=== PATIENT | male | born 1970 | race Two or more races ===

== ENCOUNTER 2019-05-31 13:08 | Outpatient (AMBR) | payer MEDICAID, SELFPAY ==
--- NOTE | 2019-02-21 09:26 | PTNOTE_ITS ---
PT OP Initial Eval Patient Information Visit Reasons: cva Medical Diagnosis: Right CVA Treatment Dx #1: Left Shoulder Weakness Treatment Dx #2: Abnormal Gait Start of Care: 02/21/19 Date of Onset: Dec 2018 Initial Assessment Subjective Pt is a 48 y/o male with left side weakness and difficulty walking secondary to right CVA (thalamic/basal ganglia hemorrhage). Pt has been doing therapy at a rehab facility ([facility]). Pt stated that he still has left side weakness but is slowly gaining strength back. Pt can transfer independently and ambulates 100 ft with FWW. Pt still has difficulty getting in/out of showes, self care, feeding, chores, prolonged walking, prolonged standing, and performing recreational activities. 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 Pt ambulate 40 ft using FWW CGA safely in therapy Assessment Pt demonstrate left side weakness and abnormal gait secondary to right CVA. Pt will benefit from physical therapy to increase strength, mobility, and work on gait. 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 Goals 1) Increase L UE MMTs grossly 3+/5 in 12 wks to be able to perform self care activities 2) Increase L LE MMTs grossly 4-/5 in 12 wks to be able to ambulate with AD out to community 3) Increase L LE AROM WFL in 12 wks to be able to get in/out of showers 4) Increase L UR AROM WFL in 12 wks to be able to perform feeding activities 5) Indep with HEP Treatment Plan 1) Manual Therapy 2) Therapeutic Activities 3) Therapeutic Exercises 4) Gait Training 5) Balance Training Frequency and Duration 3 x wk for 12 wks Certification Dates: 02/21/19 to 05/23/19 Office Procedures PT Procedures PT Date of Service: 02/21/19 OP PT Eval Mod Complex 30 minutes: Yes
--- NOTE | 2019-02-26 11:54 | PT.ODAYNRPT ---
PT Outpatient Daily Note Date of Service: February 26, 2019 OP Daily Note Visit Reasons: cva Outpatient Physical Therapy Treatment Date: 02/26/19 Subjective: Pt mention that he's working out with his dad Objective: Please see flow chart for list of ther ex performed Assessment: tolerate exercises with minimal pain; difficulty with sci fit while using both the extremities Plan: Continue with PT Length of Time (minutes) of Treatment: 45 Minutes Office Procedures PT Procedures PT Date of Service: 02/21/19 OP PT Eval Mod Complex 30 minutes: Yes PT Procedures PT Date of Service: 02/26/19 Therapeutic Exercise 45 minutes: Yes
--- NOTE | 2019-02-28 09:36 | PT.ODAYNRPT ---
PT Outpatient Daily Note Date of Service: February 28, 2019 OP Daily Note Visit Reasons: cva Outpatient Physical Therapy Treatment Date: 02/28/19 Subjective: Pt mention that he was sore after last treatment session. Pt wants to be push. Pt continues to walk at home. Objective: Please see flow chart for list of ther ex performed Assessment: fatigue at the end of PT session and L LE started to buckle. Pt cues to correct step height with step up Plan: Continue with PT Length of Time (minutes) of Treatment: 45 Minutes Office Procedures PT Procedures PT Date of Service: 02/21/19 OP PT Eval Mod Complex 30 minutes: Yes PT Procedures PT Date of Service: 02/26/19 Therapeutic Exercise 45 minutes: Yes PT Procedures PT Date of Service: 02/28/19 Therapeutic Exercise 45 minutes: Yes
--- NOTE | 2019-03-02 09:33 | PT.ODAYNRPT ---
PT Outpatient Daily Note Date of Service: March 02, 2019 OP Daily Note Visit Reasons: Pre Diabetic Outpatient Physical Therapy Treatment Date: 03/02/19 Subjective: Pt had difficulty transferring into the truck yesterday due to being fatigue and sore from previous PT session. Pt notice he is walking better with more stability. Pt goes next week for his AFO. Objective: Please see flow chart for list of ther ex performed Assessment: Pt seems slight fatigue at the beginning of PT session; had difficulty keep left LE in the LE strap during sci fit. Pt's more comfortable and stable putting weight on the L LE during ambulation in PB Plan: Continue with PT Length of Time (minutes) of Treatment: 45 Minutes Office Procedures PT Procedures PT Date of Service: 02/21/19 OP PT Eval Mod Complex 30 minutes: Yes PT Procedures PT Date of Service: 02/26/19 Therapeutic Exercise 45 minutes: Yes PT Procedures PT Date of Service: 02/28/19 Therapeutic Exercise 45 minutes: Yes PT Procedures PT Date of Service: 03/02/19 Therapeutic Exercise 45 minutes: Yes
--- NOTE | 2019-04-05 15:41 | PR.NUT1.7RPT ---
Vital Signs 04/05/19 15:42 Height 1.63 m Height Method Measured Weight 130.691 kg Weight Measurement Method Standing Scale BMI 49.4 OP Nutritional Services Height/Weight 04/05/19 15:42 Height 1.63 m Weight 130.691 kg Body Mass Index 49.4 [facility] OP NEAP Referral Referral Source: Community (Referred by Darin HERNANDEZ) Subjective: Pt presents self for nutrition counseling. Father present as pt is needing wheelchair assistance. PMH: Hemiplegia on left side (12/19/18); Newly dx T22 (02/15/19); ETOH abuse; HTN. Medications will be faxed over by [facility]. Spoke with Noemi [phone] #3. Current ht: 162.7 cm (5'3 ); wt: 288.2 lb; BMI: 51.0 which reflects extreme obesity. Obtaining ht was not accurately taken as pt not able to bring heels back to wall for appropriate measuring d/t hemiplegia. Previous PCP visit on 02/15/19 -- ht: 66 wt: 284 lb. Pt presents with +4.2 lb wt gain x 7 wks. Inquired as to why pt needed to see Registered Dietitian. Pt reports needs to learn how to eat better and lose wt. Did not provide 3 day diet recall. Obtained verbal recall x 1 day as follows: Day 1 Breakfast (10:30 am): at a restraunt - chorizo, beans, rice (no measurement); pepsi ~12 oz No AM Snack Lunch: none PM Snack: 6 pack of peanut butter crackers, water Dinner (7:00 pm): 2 6 Enchiladas with hamburger, cheese, beans, red sauce, diet A & W Labs obtained 02/01/19: WNL: RBC 4.88; H/H 14.6/43.1; BUN 20; Cr 1.18; eGFR 74; K+ 4.4; Ca++ 9.6; total protein 7.2; Albumin 4.3; AST 13; ALT 18; cholesterol 107; Trigyclerides 122; LDL 51 Elevated: Glucose 106; Na+ 146; HgbA1c 6.5% Decreased: HDL 32 Pt has limited intake of vegetables and fruits, frequents restaurants at least 8x/mo.; no portion control, high fatty sweets (bearclaw) Objective: Pt has minimal knowledge of what foods are CHO - was able to name high starchy foods (potato, rice, bread) and how they affect blood sugars (BS). Extensive education provided utilizing measuring utensils and mentioned scale to monitor portion control. Utilized plate method and various food models to devise meals throughout the day. Pt educated to consume at least 2-3 CHO foods at each meal (30-45 gm) and 1 CHO (15 gm) for snack if desired for a total of 120-165 gm of CHO (8-11 servings). Pt verbalized understanding. Discussed the importance of physical activity. Pt currently attends outpatient PT and completes exercises given on days he is not there. Recommendations: 1) Continue monitoring BP 2) Obtain HgbA1c in April 2019 to monitor 3) Practice from eating whole bearclaw; recommend cutting in 1/2 to consume and the other 1/2 for the next day Education Topic: Weight loss and Diabetes (Newly dx 02/15/19) Education comment: Provided education material: [employer] Diabetes Meal Planning Guide and Nutrition in the [employer] to help choose more appropriate restaurant foods when dining out. Goal sheet provided: 1) Portion control; 2) continue working with PT exercises on own at home Education Recipient: Patient and Care Provider (Father present during counseling session) Response to teaching: Demonstrate understanding Follow-up Visit needed: Yes (Follow up appointment scheduled June 03, 2019 @ 1:30 pm) *CWC Office Visit complete CWC Offive Visit Complete CWC Visit Complete?: Yes
[2019-04-05 15:42] VITALS: BMI 49.4
--- NOTE | 2019-05-31 13:42 | PR.NUT1.7RPT ---
Vital Signs 04/05/19 15:42 Height 1.63 m Height Method Measured Weight 130.691 kg Weight Measurement Method Standing Scale BMI 49.4 OP Nutritional Services Height/Weight 04/05/19 15:42 Height 1.63 m Weight 130.691 kg Body Mass Index 49.4
--- NOTE | 2019-05-31 14:29 | CWCCLINC_ITS ---
Vital Signs 04/05/19 15:42 05/31/19 14:31 Height 1.63 m 1.66 m Height Method Measured Weight 130.691 kg 130.294 kg Weight Measurement Method Standing Scale BMI 49.4 47.3 OP Nutritional Services Height/Weight 04/05/19 15:42 05/31/19 14:31 Height 1.63 m 1.66 m Weight 130.691 kg 130.294 kg Body Mass Index 49.4 47.3 [facility] OP NEAP Referral Referral Source: Follow-up Visit CW NEAP Follow-up Note Medications that may have nutrient interactions: Medications unchanged. Please refer to 04/05/19 Initial Assessment. Follow-Up visit notes: First follow up appointment today. Current wt: 287.4 lb; ht: 165.9 cm (5?4?). Obtaining ht was not accurately taken as pt not able to bring heels back to wall for appropriate measuring d/t hemiplegia. Previous [facility] appointment 04/05/19 ? ht: 162.2 cm (5?3?); wt: 288.2 lb. Pt presents with -0.8 lb wt loss x 8 wks. Pt reports continues exercising in pool for an hour at least 5x/wk. Physical Therapy to resume back June 07, 2019. Pt had completed sessions on May 18, 2019. Discussed importance of portion control especially when going to restaurant for breakfast, as pt continues this practice. Pt did mention that he has eliminated bearclaws from diet. Positive encouragement provided to continue this goal. Discussed changing regular soda to diet and to consume clear colored beverages. [place] (diet) was brought up. Nutrition guan is has 0.2 gm CHO, which is acceptable, but discussed this beverage should not be consumed on a daily basis. Water is the first choice. Pt reports will have a 12 oz soda with breakfast only. Education Follow-up comment: Pt re-evaluated previous goals and wants to continue to felice them so he feels they can be accomplished with no barriers. Next appointment is set up for July 24, 2019 @ 1:00 pm *CWC Office Visit complete CWC Offive Visit Complete CWC Visit Complete?: Yes
[2019-05-31 14:31] VITALS: BMI 47.3
== END 2019-05-31 23:59 | disposition home or self-care (01) ==
PROVIDERS: Referring Provider Physical Medicine & Rehabilitation; Visit Provider Family Medicine
DX: I69.354 Hemiplegia and hemiparesis following cerebral infarction affecting left non-dominant side (principal)
CPT/HCPCS: 97110; 97162

== ENCOUNTER 2021-03-03 08:28 | Outpatient (AMBR) | payer MEDICAID, SELFPAY ==
--- NOTE | 2021-02-24 16:10 | PTNOTE_ITS ---
PT OP Initial Eval Patient Information Visit Reasons: cva Medical Diagnosis: I63.9 Treatment Dx #1: CVA with L sided weakness Start of Care: 02/24/21 Initial Assessment Subjective Pt is 50 yr old male s/p CVA, thalamic/basal ganglia hemorrhage in December 2018. He has done therapy here with improvements in walking now with the cane. He is able to dress, groom, bathe, toilet independently and he can walk down the street about 80-90 yards with the cane and then sits to rest about 4-5x a day. PMH: HTN, pre-DM Pt goal: to walk better and move L arm better. 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 Pt has L UE ROM deficits and ambulates with hemiplegic gait with quad cane that he doesn't rely heavily on and L LE passes R LE in swing phase. Pt requires skilled therapy in order to improve L LE function with gait and has fair rehab potential. Short Term and Frame Table Operator Goals 1. Independent with HEP 2. Pt will ambulate at least 130 yards continuous with quad cane 3. Improved Tinetti score to Treatment Plan 90 day POC in order to complete visits. Rx may consist of Therex, Manual therapy, Neuromuscular re-education, Modalities as indicated-moist heat packs, ice packs, estim Frequency and Duration 2x a week for 6 weeks Certification Dates: 02/24/21 to 05/26/21 Office Procedures PT Procedures PT Date of Service: 02/24/21 OP PT Eval Mod Complex 30 minutes: Yes
--- NOTE | 2021-02-26 16:27 | PTNOTE_ITS ---
PT Outpatient Daily Note Date of Service: 02/26/21 OP Daily Note Visit Reasons: cva Outpatient Physical Therapy Treatment Date: 02/26/21 Subjective: Same as time of evaluation Objective: See F/S for therex MT: alternating isometrics pt in quadruped. rotary, superior, inferior x5' Assessment: Pt has difficulty in quadruped with WB on L UE since elbow doesn't fully extend. 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 Pt was able to do the total gym today well. Plan: Continue per POC Length of Time (minutes) of Treatment: 30 Minutes Office Procedures PT Procedures PT Date of Service: 02/26/21 Therapeutic Exercise 30 minutes: Yes PT Procedures PT Date of Service: 02/24/21 OP PT Eval Mod Complex 30 minutes: Yes
--- NOTE | 2021-03-03 10:44 | PT.ODAYNRPT ---
PT Outpatient Daily Note Date of Service: 03/03/21 OP Daily Note Visit Reasons: cva Outpatient Physical Therapy Treatment Date: 03/03/21 Subjective: Pt wants to do exercises to help control the L hand more. Fine motor control is difficult. Objective: SEe f/S for therex Assessment: Pt has difficulty with grasping and manipulating objects as his L digits PIP and DIP joints are in extension pattern and shoulder movements are jerky. Plan: Continue per POC Length of Time (minutes) of Treatment: 30 Minutes Office Procedures PT Procedures PT Date of Service: 02/26/21 Therapeutic Exercise 30 minutes: Yes PT Procedures PT Date of Service: 03/03/21 Therapeutic Exercise 30 minutes: Yes PT Procedures PT Date of Service: 02/24/21 OP PT Eval Mod Complex 30 minutes: Yes
== END 2021-03-06 23:59 | disposition home or self-care (01) ==
PROVIDERS: PCP Physician Assistant; Referring Provider Physician Assistant; Visit Provider Physician Assistant
DX: I69.354 Hemiplegia and hemiparesis following cerebral infarction affecting left non-dominant side (principal); I10 Essential (primary) hypertension; R73.03 Prediabetes
CPT/HCPCS: 97110; 97162

== ENCOUNTER 2021-07-02 09:25 | Outpatient (AMBR) | payer MEDICAID, SELFPAY ==
--- NOTE | 2021-06-11 10:01 | PT.OIERPT ---
PT OP Initial Eval Patient Information Visit Reasons: cva Medical Diagnosis: I63.9 Treatment Dx #1: CVA with L sided weakness Start of Care: 06/11/21 Date of Onset: December 2018 Initial Assessment Subjective Pt is 50 yr old male s/p CVA, thalamic/basal ganglia hemorrhage in December 2018. He has done therapy here with improvements and is walking now with the cane. He is able to dress, groom, bathe, toilet independently but needs assist to walk down the street. He can walk about 1 block with the cane. PMH: HTN, pre-DM Pt goal: to walk better and move L hand better. Objective L 22 lbs, R 50 lbs L UE AROM: FF: 100 deg Abduction: 90 deg L LE AROM: SLR: 55 deg with knee flexion Knee flexion: 100 deg Extension: full L hand: digits stuck in extension with DIP extension contractures Strength: Hip flexion: 3+/5 Knee extension: 4-/5 with jerkiness Knee flexion: 4/5 Increased tone and spasticity in synergistic pattern of L UE with flaccidity Gait: hemiplegic gait pattern with circumducted L LE and extensor hypertonia Rogers's on L: negative Babinski: positive on L Transfers supine to sit: independent Assessment Pt presentation consistent with referring Dx. Pt has L UE ROM deficits and ambulates with hemiplegic gait with SPC and L LE doesn't pass R LE in swing phase. The L digits are stuck in extension and he has difficulty controlling the hand with gripping and releasing. Pt requires skilled therapy in order to improve L hand function and gait and has fair rehab potential. Short Term and Scallop Cutter Machine Goals 1. Independent with HEP 2. Improved ethnology teacher strength on L hand to at least 26 lbs 3. Improved step length on L in order to pass R foot in swing phase Treatment Plan 1. Manual therapy 2. Therex 3. Modalities as indicated, moist heat, ice, estim Frequency and Duration 2x a week for 6 weeks Certification Dates: 06/11/21 to 09/11/21 Office Procedures PT Procedures PT Date of Service: 06/11/21 OP PT Eval Mod Complex 30 minutes: Yes
--- NOTE | 2021-06-18 15:01 | PTNOTE_ITS ---
PT Outpatient Daily Note Date of Service: 06/18/2021 OP Daily Note Visit Reasons: cva Outpatient Physical Therapy Treatment Date: 06/18/21 Subjective: pt states he has to be careful opening the water bottle or he will s queeze the water bottle and spill it unintentionally. which causes him to get frustrated. Objective: see flow sheet. Assessment: observed pt's fingers and move uncontrollably which makes it difficult for him to grab and squeeze objects. he was not able to put his fingers inside the web for flexion and extension of the digits. pt was able to use the DB for exercises in different weights depending on his strength. side steps with resistance did not cause instability but was muscle fatigue. he had no complaints post treatment. Plan: continue POC per PT. Length of Time (minutes) of Treatment: 30 Minutes Office Procedures PT Procedures PT Date of Service: 06/11/21 OP PT Eval Mod Complex 30 minutes: Yes PT Procedures PT Date of Service: 06/18/21 Therapeutic Exercise 30 minutes: Yes
--- NOTE | 2021-06-23 15:22 | PT.ODAYNRPT ---
PT Outpatient Daily Note Date of Service: 06/23/21 OP Daily Note Visit Reasons: cva Outpatient Physical Therapy Treatment Date: 06/23/21 Subjective: Pt reports difficulty with gripping and bending L digits Objective: See f/S for therex Assessment: Pt has L hand digit extensor bias and decreased motor control into flexion. Good gross LE motor control and strength. Plan: Continue per POC Length of Time (minutes) of Treatment: 30 Minutes Office Procedures PT Procedures PT Date of Service: 06/11/21 OP PT Eval Mod Complex 30 minutes: Yes PT Procedures PT Date of Service: 06/18/21 Therapeutic Exercise 30 minutes: Yes PT Procedures PT Date of Service: 06/23/21 Therapeutic Exercise 30 minutes: Yes
--- NOTE | 2021-06-25 10:27 | PTNOTE_ITS ---
PT Outpatient Daily Note Date of Service: 06/25/2021 OP Daily Note Visit Reasons: cva Outpatient Physical Therapy Treatment Date: 06/25/21 Subjective: pt came in really early today. pt states she is staying with her gretchen percy to help with new born baby. she states she still can not do much. Objective: see flow sheet. Assessment: noted swelling and redness on her biceps and forearm. pt continues to carry her arm close to her body. she is very sensitive and has pain with every movement. educated pt about heat/cold packs and advised her to use cold packs at home as well. pt was able to relax during PROM but needs to be moved very slow due to her pain. used hot pack during PROM which helped her relax. used cold pack pos ther ex. Plan: continue POC per PT. Length of Time (minutes) of Treatment: 30 Minutes Office Procedures PT Procedures PT Date of Service: 06/11/21 OP PT Eval Mod Complex 30 minutes: Yes PT Procedures PT Date of Service: 06/18/21 Therapeutic Exercise 30 minutes: Yes PT Procedures PT Date of Service: 06/23/21 Therapeutic Exercise 30 minutes: Yes PT Procedures PT Date of Service: 06/25/21 Therapeutic Exercise 30 minutes: Yes
--- NOTE | 2021-06-30 16:56 | PT.ODAYNRPT ---
PT Outpatient Daily Note Date of Service: 06/30/21 OP Daily Note Visit Reasons: cva Outpatient Physical Therapy Treatment Date: 06/30/21 Subjective: Pt reports difficulty with gripping and bending L digits Objective: See f/S for therex Assessment: Pt has L hand digit extensor bias and decreased motor control into flexion. Good gross LE motor control and strength. Plan: Continue per POC Length of Time (minutes) of Treatment: 30 Minutes Office Procedures PT Procedures PT Date of Service: 06/11/21 OP PT Eval Mod Complex 30 minutes: Yes PT Procedures PT Date of Service: 06/18/21 Therapeutic Exercise 30 minutes: Yes PT Procedures PT Date of Service: 06/23/21 Therapeutic Exercise 30 minutes: Yes PT Procedures PT Date of Service: 06/25/21 Therapeutic Exercise 30 minutes: Yes PT Procedures PT Date of Service: 06/30/21 Therapeutic Exercise 30 minutes: Yes
--- NOTE | 2021-07-02 10:14 | PT.ODAYNRPT ---
PT Outpatient Daily Note Date of Service: 07/02/2021 OP Daily Note Visit Reasons: cva Outpatient Physical Therapy Treatment Date: 07/02/21 Subjective: pt doing well today. Objective: see flow sheet. Assessment: pt able to flex his fingers during digi flex exercise but he has to do the exercsise 2x in order to switch his position. he does use the other hand to hold the digi flex in place. he can almost full supinate the arm during bicep curls but can not fully supinate the arm during sup/pron exercise alone. Plan: continue POC per PT. Length of Time (minutes) of Treatment: 30 Minutes Office Procedures PT Procedures PT Date of Service: 06/11/21 OP PT Eval Mod Complex 30 minutes: Yes PT Procedures PT Date of Service: 06/18/21 Therapeutic Exercise 30 minutes: Yes PT Procedures PT Date of Service: 06/23/21 Therapeutic Exercise 30 minutes: Yes PT Procedures PT Date of Service: 06/25/21 Therapeutic Exercise 30 minutes: Yes PT Procedures PT Date of Service: 06/30/21 Therapeutic Exercise 30 minutes: Yes PT Procedures PT Date of Service: 07/02/21 Therapeutic Exercise 30 minutes: Yes
== END 2021-07-07 23:59 | disposition home or self-care (01) ==
PROVIDERS: PCP Physician Assistant; Referring Provider Physician Assistant; Visit Provider Physician Assistant
DX: I69.354 Hemiplegia and hemiparesis following cerebral infarction affecting left non-dominant side (principal); I10 Essential (primary) hypertension; R73.03 Prediabetes
CPT/HCPCS: 97110; 97162

== ENCOUNTER 2024-10-22 21:48 | Emergency (ER) | payer OTHER, MEDICAID, SELFPAY ==
[2024-10-22 21:48] VITALS: BMI 48.4
[2024-10-22 21:57] VITALS: BP 139/88; PULSE 93; RESP 18; TEMP 36.6; O2SAT 94
--- NOTE | 2024-10-22 22:04 | EDNOTE_ITS ---
Lower Extremity Injury RME/HPI General Chief Complaint: Extremity Injury, Lower Stated Complaint: LEFT LEG PAIN Time Seen by Provider: 10/22/24 21:51 Arrival date/time: 10/22/24 21:48 53-year-old male with a history of left meniscus tear and CVA affecting the left side reports with complaints of left knee pain. Patient states that he stepped wrong twisted and felt a pop and pain in the knee. Patient states that he has not taken any medications for it but he is here requesting pain as he is unable to bear it. He denies numbness or tingling loss of range of motion or weakness in the knee. Limitations: no limitations Related Data Home Medications ?Medication ?Instructions ?Recorded ?Confirmed amlodipine 10 mg tablet 10 mg PO QDAY 08/04/19 01/24/20 atorvastatin 10 mg tablet 10 mg PO QPM 08/04/19 01/24/20 carvedilol 12.5 mg tablet 12.5 mg PO BID 08/04/19 01/24/20 clonidine HCl 0.1 mg tablet 0.1 mg PO Q8H PRN HBP 08/04/19 01/24/20 hydralazine 50 mg tablet 100 mg PO TID 08/04/19 01/24/20 lisinopril 20 mg tablet 20 mg PO BID 08/04/19 01/24/20 sertraline 50 mg tablet 50 mg PO QDAY 08/04/19 01/24/20 furosemide 20 mg tablet (Lasix) 10 mg PO QAM 01/24/20 01/24/20 potassium chloride 8 mEq 8 meq PO QAM 01/24/20 01/24/20 capsule,extended release Previous Rx's ?Medication ?Instructions ?Recorded hydrocodone 7.5 mg-acetaminophen 1 tab PO Q6H #25 tabs 01/29/20 325 mg tablet ([place]) hydrocodone 5 mg-acetaminophen 325 1 tab PO Q12H PRN pain #10 tabs 10/22/24 mg tablet Allergies Allergy/AdvReac Type Severity Reaction Status Date / Time No Known Allergies Allergy Verified 08/08/23 14:23 Review of Systems Constitutional Constitutional: Denies chills and Denies fever(s) Musculoskeletal Musculoskeletal: Reports arthralgias, Denies deformity, Denies joint swelling, Denies muscle weakness, Denies numbness and Denies tingling Integumentary/Breasts Skin/Breast: Denies unusual bruising and Denies wounds Neurologic Neurologic: Denies numbness and Denies tingling Hematologic/Lymphatic Hematologic/Lymphatic: Denies easy bleeding and Denies easy bruising Past Medical History Past Medical History NEUROLOGIC: Positive Neurological Disorders and Cerebrovascular Accident (left sided weakness); Negative Seizures CARDIAC: Positive Hypertension; Negative Cardiac Disorders or Congestive Heart Failure RESPIRATORY: Positive Sleep Apnea; Negative Chronic Obstructive Pulmonary Disease (COPD) or Asthma GENITOURINARY: Negative Renal Disease ENDOCRINE: Negative Diabetes Mellitus Type 1 or Diabetes Mellitus Type 2 (per pt. boarderline) HEMATOLOGIC: Negative Sickle Cell Disease Family History FAMILY HISTORY: Negative Family Neurologic Problems, Family Psychiatric Problems, Family Respiratory Disorders, Family Cardiac Disorders, Family Gastrointestinal Problems, Family Cancer, Family Surgery or Family Anesthesia Reaction Social History SMOKING STATUS: Never smoker SUBSTANCE USE: does not use ED Exam General Limitations: Present no limitations General appearance: Present alert and in no apparent distress Expanded Lower Extremity Exam Upper leg exam: Present normal inspection and full ROM Knee exam: Present normal inspection, full ROM, tenderness (Lateral joint line left knee) and other (pulses/reflexes 2+, sensory intact); Absent swelling, ecchymosis, effusion, laxity with valgus or laxity with varus Lower leg exam: Present normal inspection and full ROM Ankle exam: Present normal inspection and full ROM Gait: unable to bear weight Neurological Exam Neurological exam: Present alert, oriented X3 and CN II-XII intact Psychiatric Psychiatric exam: Present normal affect and normal mood Skin Skin exam: Present warm, dry, intact and normal color Course Quality Measures none Vital Signs Vital signs: Vital Signs Temperature 98 F 10/22/24 21:57 Pulse Rate 93 10/22/24 21:57 Respiratory Rate 18 10/22/24 21:57 Blood Pressure 139/88 H 10/22/24 21:57 Pulse Oximetry (%) 94 L 10/22/24 21:57 Oxygen Delivery Method Room Air 10/22/24 21:57 Extremity Injury, Lower Patient data External records reviewed:: None Clinical information provided by:: patient Social determinants that could affect healthcare access:: other (specify) Patient has the following chronic illnesses:: left menicus tear How is presenting disease/condition affected by chronic disease/condition?: caused by Evaluation data The following diagnostics were reviewed and interpreted by me:: other (specify) (none) Lab and/or radiology exams considered but not ordered:: xray Interpretation Summary: n/a Medications / Prescriptions Medications or Prescriptions considered but not ordered:: none Medication administrations:: [place] 5/325 Consultations Consultation(s) initiated? (list below): No Diagnosis Most likely diagnosis given after review of the tests above:: left knee pain Admission Indicated Admission indicated?: not indicated Admission Request Was there a request for admission?: No Disposition Plan Disposition Plan: Discharge Discharge Attestation Discharge Attestation: The patient and all family members were given an opportunity to ask questions and understood the discharge instructions. Discharge instructions specifically effects, indications for sooner follow up or return to the emergency department, and the expected course of current diagnosis. Patient condition: Stable Discharge Plan Plan Patient Disposition: HOME (Self Care) Prescriptions/Referrals Prescriptions/Med Rec: New hydrocodone-acetaminophen 5-325 mg tablet 1 tab PO Q12H MDD 4 g APAP PRN (Reason: pain) Qty: 10 0RF No Action clonidine HCl 0.1 mg Tablet 0.1 mg PO Q8H PRN (Reason: HBP) Rx Instructions: every 8 hrs prn b/p greater than 150/90 carvedilol 12.5 mg Tablet 12.5 mg PO BID atorvastatin 10 mg Tablet 10 mg PO QPM lisinopril 20 mg Tablet 20 mg PO BID amlodipine 10 mg Tablet 10 mg PO QDAY hydralazine 50 mg Tablet 100 mg PO TID sertraline 50 mg Tablet 50 mg PO QDAY potassium chloride 8 mEq capsule, extended release 8 meq PO QAM Patient Comments: TAKE ONE CAPSULE BY MOUTH EVERY DAY furosemide [Lasix] 20 mg tablet 10 mg PO QAM Rx Instructions: HALG TAB PO QAM hydrocodone-acetaminophen [[place]] 7.5-325 mg tablet 1 tab PO Q6H MDD 4 Qty: 25 0RF Referrals: Temporary Provider,ED [Primary Care Provider] - In 1 week Problem List Clinical Impression: Knee pain, left Patient/Caregiver Discharge Instructions Discharge Activity: activity as tolerated Education Materials: ED RICE Additional Instructions: Follow-up with your primary care provider Print Language: Slovenian Stand Alone Forms: Caryl Award Info., Patient Portal Info Letter
[2024-10-22] MEDS: HYDROcodone/APAP 5/325 TABLET 1 TAB PO (22:40)
== END 2024-10-22 22:47 | disposition home or self-care (01) ==
PROVIDERS: Emergency Provider Emergency Medicine; PCP Nurse Practitioner Family
DX: S89.92XA Unspecified injury of left lower leg, initial encounter (principal); X50.1XXA Overexertion from prolonged static or awkward postures, initial encounter
CPT/HCPCS: 99283; A9270

== ENCOUNTER 2024-10-23 17:22 | Emergency (ER) | payer OTHER, MEDICAID, SELFPAY ==
[2024-10-23 17:22] VITALS: BMI 47.6
[2024-10-23 17:43] VITALS: BP 135/82; PULSE 93; RESP 20; TEMP 37.4; O2SAT 95
--- NOTE | 2024-10-23 17:45 | XR_ITS ---
Examination: Knee, left , 3 views Technique: Knee AP, lateral, oblique 3 views Date and time of exam: 1 hours Indication: Patient fell with injury to the knee 2 days ago, knee pain. Findings: No acute fracture Moderate to advanced tricompartment osteoarthritis Moderate knee effusion Impression: No acute fracture
--- NOTE | 2024-10-23 17:45 | PD.EDRME ---
Rapid Medical Screening Exam RME Arrival date/time: 10/23/24 17:22 53-year-old male presents emergency department complains of left knee pain worse with movement patient reports previous injury to the knee with ligamentous injury Chief Complaint: Extremity Injury, Lower Time Seen by Provider: 10/23/24 17:35 Vital signs: Vital Signs Temperature 99.4 F 10/23/24 17:43 Pulse Rate 93 10/23/24 17:43 Respiratory Rate 20 10/23/24 17:43 Blood Pressure 135/82 H 10/23/24 17:43 Pulse Oximetry (%) 95 10/23/24 17:43 Oxygen Delivery Method Room Air 10/23/24 17:43
--- NOTE | 2024-10-23 21:04 | PD.EDLOWEX ---
Lower Extremity Injury RME/HPI General Chief Complaint: Extremity Injury, Lower Stated Complaint: LEFT KNEE PAIN WANTS MRI Time Seen by Provider: 10/23/24 17:35 Arrival date/time: 10/23/24 17:22 Limitations: no limitations RME / HPI RME / HPI Narrative: 10/23/24 17:22 53-year-old male presents emergency department complains of left knee pain worse with movement patient reports previous injury to the knee with ligamentous injury. DR. RAMIREZ MAIN ED EVALUATION: 53-year-old male presents to the Emergency Department with complaint of left knee pain since twisting his knee a few days ago. The patient states that he has history of stroke and has baseline weakness in his left upper extremity and lower extremity. He was twisting it and now is complaining of increased pain. The patient states a few years ago he was told that he might of had a ligamental injury but could not get it treated because he had a history of stroke and his blood pressure is too high. Blood pressure has been fine the last few years. Patient is increasing pain over the last few days Patient without weakness or numbness. Related Data Home Medications ?Medication ?Instructions ?Recorded ?Confirmed amlodipine 10 mg tablet 10 mg PO QDAY 08/04/19 01/24/20 atorvastatin 10 mg tablet 10 mg PO QPM 08/04/19 01/24/20 carvedilol 12.5 mg tablet 12.5 mg PO BID 08/04/19 01/24/20 clonidine HCl 0.1 mg tablet 0.1 mg PO Q8H PRN HBP 08/04/19 01/24/20 hydralazine 50 mg tablet 100 mg PO TID 08/04/19 01/24/20 lisinopril 20 mg tablet 20 mg PO BID 08/04/19 01/24/20 sertraline 50 mg tablet 50 mg PO QDAY 08/04/19 01/24/20 furosemide 20 mg tablet (Lasix) 10 mg PO QAM 01/24/20 01/24/20 potassium chloride 8 mEq 8 meq PO QAM 01/24/20 01/24/20 capsule,extended release Previous Rx's ?Medication ?Instructions ?Recorded hydrocodone 7.5 mg-acetaminophen 1 tab PO Q6H #25 tabs 01/29/20 325 mg tablet ([place]) hydrocodone 5 mg-acetaminophen 325 1 tab PO Q12H PRN pain #10 tabs 12/16/24 mg tablet Allergies Allergy/AdvReac Type Severity Reaction Status Date / Time No Known Allergies Allergy Verified 08/08/23 14:23 Review of Systems Review of Systems Systems Reviewed: All systems reviewed, normal except as documented Narrative Review of Systems: GEN: No fever, no chills, no weight loss EYES: No discharge, no visual changes, no pain HEENT: No ear pain, no congestion, no sore throat PULM: No shortness of breath, no cough, no congestion CV: No chest pain, no dyspnea on exertion, no palpitations GI: No nausea, no vomiting, no diarrhea, no pain, no constipation : No frequency, no urgency and no dysuria MUSC/SKEL: + left knee pain (see HPI), no back pain SKIN: No rash PSYCH: No hallucinations, no depression HEME/LYMPH: No easy bleeding or bruising tendencies NEURO: No headache Constitutional Comments: No fevers Musculoskeletal Comments: Left knee pain Neurologic Comments: No weakness or numbness Past Medical History Past Medical History NEUROLOGIC: Positive Neurological Disorders and Cerebrovascular Accident (left sided weakness); Negative Seizures CARDIAC: Positive Hypertension; Negative Cardiac Disorders or Congestive Heart Failure RESPIRATORY: Positive Sleep Apnea; Negative Chronic Obstructive Pulmonary Disease (COPD) or Asthma GENITOURINARY: Negative Renal Disease ENDOCRINE: Negative Diabetes Mellitus Type 1 or Diabetes Mellitus Type 2 (per pt. boarderline) HEMATOLOGIC: Negative Sickle Cell Disease Family History FAMILY HISTORY: Negative Family Neurologic Problems, Family Psychiatric Problems, Family Respiratory Disorders, Family Cardiac Disorders, Family Gastrointestinal Problems, Family Cancer, Family Surgery or Family Anesthesia Reaction Social History SMOKING STATUS: Never smoker SUBSTANCE USE: does not use ALCOHOL: Never ED Exam Narrative Physical exam: KNEE: On inspection contours of the joint are normal, there is reduced ROM. Muscle atrophy evident: no Pain on resisted extension: no Strength on extension against resistance: no Patellar crepitus: none Effusion (fluid wave check or patellar palpation): mild Patellar pain: lateal Joint line pain: none medially or laterally Tendon pain: No pain with palpation of the patellar and quad tendons Della:negative for crepitus and pain Bursal swelling or pain: No swelling or pain over the pes anserine bursa Collateral ligament testing: shows no laxity or pain/shows medial collateral ligament pain without laxity Anterior drawer test no anterior cruciate laxity ROM: is limited Posterior drawer: shows no laxity Popliteal space: without mass orP tenderness General Limitations: Present no limitations General appearance: Present alert and in no apparent distress Head Head exam: Present atraumatic ENT ENT exam: Present normal exam, normal oropharynx and mucous membranes moist Neck Neck exam: Present normal inspection, full ROM and trachea midline Respiratory Respiratory exam: Present normal lung sounds bilaterally Cardiovascular Cardiovascular exam: Present regular rate, normal rhythm and normal heart sounds Abdominal Exam Abdominal exam: Present soft and normal bowel sounds Extremities Exam Extremities exam: Present normal inspection and full ROM Back Exam Back exam: Present normal inspection and full ROM Skin Skin exam: Present warm, dry, intact and normal color Course Course Course Narrative: Knee x-ray has been ordered to aid in determining etiology of knee pain. Refer to ROS for associated respiratory symptoms. See physical exam for additional information if not listed in ROS. Quality Measures none Orders Category Date Time Status [place] wrap [Splint / Immobilizer] STAT Care 10/23/24 21:[address] knee LT wo con Stat Exams 10/23/24 21:08 Completed XR knee LT 3V Stat Exams 10/23/24 17:45 Completed Ketorolac Inj [Toradol Inj] Med 10/23/24 21:08 Discontinued 30 mg IM X1 ONE Reevaluation(s) Reevaluation #1: Patient placed in [place] bandage and is significantly improved. At this time he does not want a knee immobilizer and/or crutches which will make it difficult for him walk because of his previous stroke. Time: 23:56 Vital Signs Vital signs: Vital Signs Temperature 99.4 F 10/23/24 17:43 Pulse Rate 93 10/23/24 17:43 Respiratory Rate 20 10/23/24 17:43 Blood Pressure 135/82 H 10/23/24 17:43 Pulse Oximetry (%) 95 10/23/24 17:43 Oxygen Delivery Method Room Air 10/23/24 17:43 Extremity Injury, Lower MDM Narrative MDM Narrative:: IMarsha am scribing for and in the presence of Dr. Ramirez. Patient data External records reviewed:: [facility] previous records (Reviewed last ED visit dated 10/22/24, discharged with the following: Knee pain, left.) Clinical information provided by:: patient Social determinants that could affect healthcare access:: none Patient has the following chronic illnesses:: Hypertension, hyperlipidemia. How is presenting disease/condition affected by chronic disease/condition?: uneffected by Evaluation data The following diagnostics were reviewed and interpreted by me:: radiology exam(s) Lab and/or radiology exams considered but not ordered:: none Interpretation Summary: Procedure(s): XR knee LT 3V Accession Number(s): [id number] cc: Jhonny (BRENDA),Julio GUTIERREZ; Kendrick Buck MD; Shavonne Jose NP~ Examination: Knee, left , 3 views Technique: Knee AP, lateral, oblique 3 views Date and time of exam: 1 hours Indication: Patient fell with injury to the knee 2 days ago, knee pain. Findings: No acute fracture Moderate to advanced tricompartment osteoarthritis Moderate knee effusion Impression: No acute fracture Dictated By: Kendrick Buck MD Procedure(s): CT knee LT wo con Accession Number(s): [id number] cc: Kendrick Buck MD; Shavonne Jose NP; Karina Ramirez MD~ Examination: CT left knee, without contrast. 2-D sagittal reconstructions. 2-D coronal reconstructions. 3-D reconstructions. Date and time of exam:October 23, 2024 1007 hrs. Indications: Twisting injury to the knee 3 days ago with knee pain CTDI: vol (mGy):11.8 DLP: (mGycm):346 Technique: Multiple 1.25 mm axial sections of the intravenous contrast have been obtained. 2-D sagittal and coronal reconstructions have been obtained. 3-D reconstructions have been obtained. Low dose protocols were performed. One or more of the following dose reduction techniques were used; automated exposure control, adjustment of the mA and/or KV according to patient size, use of iterative reconstruction technique. Findings: Distal femur femoral condyles intact Widening of the medial patellofemoral joint space with moderate narrowing of the lateral patellofemoral joint, axial image 44 Tibial plateau proximal tibia region fibular head and neck intact Moderate tricompartment osteoarthritis Small knee effusion Impression: No acute fracture Abnormal widening of the medial patellofemoral joint consistent with tear of the medial patellar retinaculum Recommend MRI knee without contrast follow-up Dictated By: Kendrick Buck MD Medications / Prescriptions Medications or Prescriptions considered but not ordered:: none Medication administrations:: Medication Administration History Discontinued Medications Ketorolac Tromethamine (Ketorolac Inj 60 Mg/2 Ml Vial) 30 mg IM X1 ONE Stop: 10/23/24 21:09 Last Admin: 10/23/24 21:31 Dose: 30 mg Documented By: MP see above Consultations Consultation(s) initiated? (list below): No Consultation #1 (Physician, Specialty, Details): na Diagnosis Extremity Injury, Lower Differential Diagnosis: other (severe osteoarthritis, acute on chronic ligamental injury, fracture that is occult, doubt DVT) Most likely diagnosis given after review of the tests above:: Effusion of left knee, Osteoarthritis, Ligament tear Admission Indicated Admission indicated?: not indicated Explain why admission is indicated or not indicated:: Patient able to ambulate. Admission Request Was there a request for admission?: No Disposition Plan Disposition Plan: Discharge Discharge Attestation Discharge Attestation: The patient and all family members were given an opportunity to ask questions and understood the discharge instructions. Discharge instructions specifically effects, indications for sooner follow up or return to the emergency department, and the expected course of current diagnosis. Patient condition: Stable Discharge Plan Plan Patient Disposition: HOME (Self Care) Patient condition on transfer: Stable Prescriptions/Referrals Prescriptions/Med Rec: No Action clonidine HCl 0.1 mg Tablet 0.1 mg PO Q8H PRN (Reason: HBP) Rx Instructions: every 8 hrs prn b/p greater than 150/90 carvedilol 12.5 mg Tablet 12.5 mg PO BID atorvastatin 10 mg Tablet 10 mg PO QPM lisinopril 20 mg Tablet 20 mg PO BID amlodipine 10 mg Tablet 10 mg PO QDAY hydralazine 50 mg Tablet 100 mg PO TID sertraline 50 mg Tablet 50 mg PO QDAY potassium chloride 8 mEq capsule, extended release 8 meq PO QAM Patient Comments: TAKE ONE CAPSULE BY MOUTH EVERY DAY furosemide [Lasix] 20 mg tablet 10 mg PO QAM Rx Instructions: HALG TAB PO QAM hydrocodone-acetaminophen [[place]] 7.5-325 mg tablet 1 tab PO Q6H MDD 4 Qty: 25 0RF hydrocodone-acetaminophen 5-325 mg tablet 1 tab PO Q12H MDD 4 g APAP PRN (Reason: pain) Qty: 10 0RF Referrals: Shavonne Jose NP [Primary Care Provider] - In 1 week Marc Valentine MD [Physician] - In 1 week (You need to get a referral from your doctor for the MRI and referral to orthopedic. However your here is Dr. Valentine's office number.) Problem List Clinical Impression: Effusion of left knee, Osteoarthritis, Ligament tear Patient/Caregiver Discharge Instructions Other Activity Instructions:: Please avoid running so you could avoid doing more damage to your knee. Education Materials: [facility] ED Knee Effusion, ED Osteoarthritis Additional Instructions: 1. Your x-ray is as below:Findings: No acute fracture Moderate to advanced tricompartment osteoarthritis Moderate knee effusion Impression: No acute fracture 2. Your CT of your knee: Distal femur femoral condyles intact Widening of the medial patellofemoral joint space with moderate narrowing of the lateral patellofemoral joint, axial image 44 Tibial plateau proximal tibia region fibular head and neck intact Moderate tricompartment osteoarthritis Small knee effusion Impression: No acute fracture Abnormal widening of the medial patellofemoral joint consistent with tear of the medial patellar retinaculum Recommend MRI knee without contrast follow-up 3. Please follow-up with your primary care physician so that you get a referral to orthopedic. I will give you the orthopedics team so that you can call to get appointment this week. You will need to get the MRI through your primary care physician's office. I have given you the CT read of your knee above. You can take [id number] Tylenol 650 mg 3 times a day if needed for pain. At this time I do not think you could use a knee immobilizer or walker because of your history of stroke. However we will give you an [place] bandage 4. You can take [id number] Tylenol 650 mg 3 times a day for the next 1 week for pain. Print Language: Botswanan Stand Alone Forms: Caryl Award Info., Patient Portal Info Letter
--- NOTE | 2024-10-23 21:08 | XR_ITS ---
Examination: CT left knee, without contrast. 2-D sagittal reconstructions. 2-D coronal reconstructions. 3-D reconstructions. Date and time of exam:October 23, 2024 1007 hrs. Indications: Twisting injury to the knee 3 days ago with knee pain CTDI: vol (mGy):11.8 DLP: (mGycm):346 Technique: Multiple 1.25 mm axial sections of the intravenous contrast have been obtained. 2-D sagittal and coronal reconstructions have been obtained. 3-D reconstructions have been obtained. Low dose protocols were performed. One or more of the following dose reduction techniques were used; automated exposure control, adjustment of the mA and/or KV according to patient size, use of iterative reconstruction technique. Findings: Distal femur femoral condyles intact Widening of the medial patellofemoral joint space with moderate narrowing of the lateral patellofemoral joint, axial image 44 Tibial plateau proximal tibia region fibular head and neck intact Moderate tricompartment osteoarthritis Small knee effusion Impression: No acute fracture Abnormal widening of the medial patellofemoral joint consistent with tear of the medial patellar retinaculum Recommend MRI knee without contrast follow-up
[2024-10-23] MEDS: KETOROLAC INJ 60 MG/2 ML VIAL 30 MG IM (21:31)
== END 2024-10-24 00:05 | disposition home or self-care (01) ==
PROVIDERS: Emergency Provider Emergency Medicine; PCP Nurse Practitioner Family
DX: S76.112A Strain of left quadriceps muscle, fascia and tendon, initial encounter (principal); M17.12 Unilateral primary osteoarthritis, left knee; X50.1XXA Overexertion from prolonged static or awkward postures, initial encounter
CPT/HCPCS: 73562; 73700; 96372; 99284; J1885

== ENCOUNTER → 2024-12-07 | Outpatient (CLI) | payer OTHER, MEDICAID, SELFPAY ==
--- NOTE | 2024-12-07 10:00 | XR_ITS ---
Exam: MRI knee without contrast, left Date and time of exam: December 07, 2024 1131 hours INDICATIONS: Left lateral knee pain weakness joint clicking instability post injury one month ago Technique: Multiple axial, coronal, and sagittal sections on the knee have been obtained. T2-Weighted sagittal, fat-suppressed images, TR 3,500, TE 62, T2 weighted coronal fat-saturated images, TR 3,500, TE 62 Proton density sagittal sections, TR 1800, TE 31. T-1 weighted coronal images, TR 524, TE 13.0 Findings: Medial meniscus anterior horn intact. Medial meniscus, body small horizontal peripheral linear tear. Posterior horn medial meniscus horizontal linear tear communicating inferior articular surface near the inner margin sagittal image 6. Lateral meniscus anterior horn vertical tears communicating inferior articular surface with truncation intermargin sagittal image 20 Lateral meniscus, body oblique tear communicating inferior articular surface coronal image 13 Posterior horn lateral meniscus is intact Anterior cruciate ligament moderate sprain Posterior cruciate ligament appears intact. Knee effusion is small. Quadriceps and patellar tendons appear intact. There is no evidence of tendinosis. Inflammatory change or fracture of Hoffa's fat pad is not seen. Medial patellar facet demonstrates moderate thinning. Lateral patellar facet cartilage demonstrates severe thinning. Trochlear cartilage demonstrates severe thinning. Marrow signal adequate. Medial collateral ligament appears intact. No meniscocapsular separation is seen. Illiotibial band and fibular collateral ligament are intact. Biceps femoris tendons appear intact. Medial femoral condylar articular cartilage demonstrates moderate thinning. Lateral femoral condylar articular cartilage demonstratesmoderate thinning. Tibial plateau cartilage demonstrates moderate thinning. Impression: Bilateral meniscus tears as above Moderate sprain anterior cruciate ligament Significant thinning cartilage lateral patellofemoral joint
== END | disposition home or self-care (01) ==
LOC: SMRI 09:30
PROVIDERS: PCP Nurse Practitioner Family
DX: S83.282A Other tear of lateral meniscus, current injury, left knee, initial encounter (principal); S83.242A Other tear of medial meniscus, current injury, left knee, initial encounter; S83.512A Sprain of anterior cruciate ligament of left knee, initial encounter; X58.XXXA Exposure to other specified factors, initial encounter
CPT/HCPCS: 73721

== ENCOUNTER → 2025-02-05 | Outpatient (CLI) | payer OTHER, MEDICAID, SELFPAY ==
--- NOTE | 2025-02-05 | XR_ITS ---
Examination: PA lateral chest 2 views TECHNIQUE: Upright PA lateral chest 2 views Exam date and time: February 05, 2025 1313 hours Comparison January 27, 2020 INDICATIONS: Coughing beginning 3 weeks ago. FINDINGS: No significant cardiac enlargement. Ectatic thoracic aorta. No pneumonia or pulmonary edema IMPRESSION: No pneumonia or pulmonary edema
== END | disposition home or self-care (01) ==
PROVIDERS: PCP Nurse Practitioner Family; Referring Provider Nurse Practitioner Family; Visit Provider Nurse Practitioner Family
DX: R50.9 Fever, unspecified (principal); Z01.818 Encounter for other preprocedural examination
CPT/HCPCS: 71046

== ENCOUNTER → 2025-05-06 | Outpatient (CLI) | payer OTHER, SELFPAY ==
--- NOTE | 2025-05-06 14:22 | XR_ITS ---
Examination: Foot, left, 3 views Technique: AP, oblique, lateral views foot, 3 views Date and time of exam: May 06, 2025 1432 hours INDICATIONS: Left-sided foot pain 2 months. FINDINGS: Significant osteopenia Moderate osteoarthritis first metatarsophalangeal joint No acute fracture No opaque foreign body 5 mm plantar bony calcaneal spur IMPRESSION: Moderate osteoarthritis first metatarsophalangeal joint 5 mm plantar bony calcaneal spur
== END | disposition home or self-care (01) ==
PROVIDERS: PCP Podiatrist; Referring Provider Podiatrist; Visit Provider Podiatrist
DX: M19.072 Primary osteoarthritis, left ankle and foot (principal); M77.32 Calcaneal spur, left foot
CPT/HCPCS: 73630

== ENCOUNTER 2025-07-05 15:30 | Outpatient (RCR) | payer OTHER, SELFPAY ==
--- NOTE | 2025-06-19 15:20 | PTNOTE_ITS ---
PT OP Initial Eval Patient Information Outpatient Physical Therapy Treatment Date: 06/19/25 Visit Reasons: left knee surgery Medical Diagnosis: M23.212 Treatment Dx #1: Left Knee Mobility Deficits Treatment Dx #2: Left Knee Pain Start of Care: 06/19/25 Date of Onset: 03/05/25 Smoking Status Smoking Status: Never smoker Initial Assessment Subjective: Pt is a 54 y/o male s/p left knee arthroscopic surgery 02/27/25 due to meniscal tears. Pt still has knee pain (6/10) with activities. Pt has limitation with walking, standing, chores, self care, balance, uneven surfaces, stairs, and performing recreational activities. Objective: Left Knee AROM: -8 deg to 110 deg with pain Left Knee MMTs: grossly 4-/5 Left Hip MMTs: grossly 3/5 Active SLR: 45 deg Assessment: Pt demonstrate left knee mobility and strength deficits s/p surgery leading to difficulty with ADLs. Pt will benefit from physical therapy to increase ROM, strength, and work on stability Short Term and Detention Goals 1) Increase left knee AROM WNL in 6 wks to be able to perform chores 2) Decrease knee pain to 2/10 in 6 wks to be able to stand more than 30 mins 3) Increase left knee MMTs grossly to 4/5 in 6 wks to be able to perfom stairs and steps 4) Increase left hip MMTs grossly to 4-/5 in 6 wks to be able to walk more than 30 mins with AD 5) Increase SLS to 10 sec in 6 wks to be able to perform self care activities 6) Indep with HEP Treatment Plan 1) Manual Therapy 2) Therapeutic Activities 3) Therapeutic Exercises 4) Modalities (ice, heat) 5) Balance Training 6) Gait Training Frequency and Duration: 2 x wk for 6 wks Certification Dates: 06/19/25 to 09/19/25 Procedure Charges OP PT Eval Mod Complex 30 minutes: Yes
--- NOTE | 2025-07-03 15:31 | PT.ODAYNRPT ---
PT Outpatient Daily Note OP Daily Note Outpatient Physical Therapy Treatment Date: 07/03/25 Visit Reasons: left knee surgery Subjective: Pt's knee is better. Pt still has weakness and notice some instability with prolonged walking. Pt leg fatigue from this past week's trip; he came from [place] and plans to move in late August Objective: Please see flow chart for list of ther ex performed Assessment: tolerate exercises with minimal pain Plan: Continue with PT Length of Time (minutes) of Treatment: 30 Minutes Procedure Charges Therapeutic Exercise 30 minutes: Yes
--- NOTE | 2025-07-05 15:33 | PT.ODAYNRPT ---
PT Outpatient Daily Note OP Daily Note Outpatient Physical Therapy Treatment Date: 07/05/25 Visit Reasons: left knee surgery Subjective: Pt reports muscle soreness post last PT session but no pain. Objective: Pleaes see flow sheet for ther ex list. Assessment: Verbal cues during calf stretch exercise to achieve desired motion and stretch. Plan: Continue with pOC. Length of Time (minutes) of Treatment: 30 Minutes CLINICAL NURSING PROFESSOR Service Modifier Method I: Divide the number of min of care provided by the CLINICAL NURSING PROFESSOR/SENIOR SITE MANAGER by the total min of care provided then multiply by 100. If greater than 11 percent modifier is required. Method II: Divide the total time of care provided to patient by 10 (round to the nearest whole number) and add 1 min. to set the minimum time requirement. If treatment total was 60 min., then 10% of 6 min PT CQ modifier applied: CQ Modifier applied Procedure Charges Therapeutic Exercise 30 minutes: Yes
== END 2025-07-07 23:59 | disposition home or self-care (01) ==
LOC: CPTX 15:30
PROVIDERS: PCP Orthopaedic Surgery; Referring Provider Orthopaedic Surgery; Visit Provider Orthopaedic Surgery
DX: M25.562 Pain in left knee (principal); R26.2 Difficulty in walking, not elsewhere classified; R26.89 Other abnormalities of gait and mobility; M23.212 Derangement of anterior horn of medial meniscus due to old tear or injury, left knee; S89.92XD Unspecified injury of left lower leg, subsequent encounter; X58.XXXD Exposure to other specified factors, subsequent encounter
CPT/HCPCS: 97110; 97162

== ENCOUNTER 2025-08-06 14:30 | Outpatient (RCR) | payer OTHER, SELFPAY ==
--- NOTE | 2025-07-12 14:53 | PT.ODAYNRPT ---
PT Outpatient Daily Note OP Daily Note Outpatient Physical Therapy Treatment Date: 07/12/25 Visit Reasons: left knee surgery Subjective: Pt reports L knee is progressing, wears sleeve on L knee because at times it feels unstable. Objective: Please see flow sheet for ther ex list. Assessment: Added step up exercise, pt demonstrates poor foot clearance modified step height to lower height. Plan: Continue with poC. Length of Time (minutes) of Treatment: 30 Minutes RAILROAD CAR PAINTER Service Modifier Method I: Divide the number of min of care provided by the RAILROAD CAR PAINTER/SENIOR ETL DEVELOPER by the total min of care provided then multiply by 100. If greater than 11 percent modifier is required. Method II: Divide the total time of care provided to patient by 10 (round to the nearest whole number) and add 1 min. to set the minimum time requirement. If treatment total was 60 min., then 10% of 6 min PT CQ modifier applied: CQ Modifier applied Procedure Charges Therapeutic Exercise 30 minutes: Yes
--- NOTE | 2025-07-17 16:37 | PTNOTE_ITS ---
PT Outpatient Daily Note OP Daily Note Outpatient Physical Therapy Treatment Date: 07/17/25 Pediatric or Adult Patient: Adult PT >13 Visit Reasons: left knee surgery Subjective: Pt reports progress with knee. Objective: Please see flow sheet for ther ex list. Assessment: Progression of interventions completed with good tolerance. Plan: Continue with poC. MOBILE HEAVY EQUIPMENT OPERATOR Service Modifier Method I: Divide the number of min of care provided by the MOBILE HEAVY EQUIPMENT OPERATOR/TED by the total min of care provided then multiply by 100. If greater than 11 percent modifier is required. Method II: Divide the total time of care provided to patient by 10 (round to the nearest whole number) and add 1 min. to set the minimum time requirement. If treatment total was 60 min., then 10% of 6 min PT CQ modifier applied: CQ Modifier applied Procedure Charges Therapeutic Exercise 30 minutes: Yes
--- NOTE | 2025-07-19 15:21 | PT.ODAYNRPT ---
PT Outpatient Daily Note OP Daily Note Outpatient Physical Therapy Treatment Date: 07/19/25 Visit Reasons: left knee surgery Subjective: Pt's knee is feeling better. Pt has been doing exercises in the pool and been using gym equipment Objective: Please see flow chart for list of ther ex performed Assessment: added 2# ankle weight with knee exercises with good tolerance and form. Plan: Continue with PT Length of Time (minutes) of Treatment: 30 Minutes Procedure Charges Therapeutic Exercise 30 minutes: Yes
--- NOTE | 2025-07-24 14:57 | PT.ODAYNRPT ---
PT Outpatient Daily Note OP Daily Note Outpatient Physical Therapy Treatment Date: 07/24/25 Visit Reasons: left knee surgery Subjective: Pt's knee was sore after last session. Pt wants to back off on the 2# weight for knee exercises. Pt continues to do HEP in the pool Objective: Please see flow chart for list of ther ex perfomed Assessment: decrease ankle weigh to 1# weight with better tolerance today. Pt was fatigue post PT session and had difficulty completing monster walks Plan: Continue with PT Length of Time (minutes) of Treatment: 30 Minutes Procedure Charges Therapeutic Exercise 30 minutes: Yes
--- NOTE | 2025-07-26 15:38 | PT.ODAYNRPT ---
PT Outpatient Daily Note OP Daily Note Outpatient Physical Therapy Treatment Date: 07/26/25 Visit Reasons: left knee surgery Subjective: Pt reports knee feels stronger, notices less episodes of knee buckling. Objective: Please see flow sheet for ther ex list. Assessment: Pt L knee cuckled during step tap exercise, pt able to recover footing and balance with R LE and R UE. Plan: Continue with pOC. Length of Time (minutes) of Treatment: 30 Minutes SENIOR REGULATORY AFFAIRS SPECIALIST Service Modifier Method I: Divide the number of min of care provided by the SENIOR REGULATORY AFFAIRS SPECIALIST/MANAGER FINANCIAL SERVICES by the total min of care provided then multiply by 100. If greater than 11 percent modifier is required. Method II: Divide the total time of care provided to patient by 10 (round to the nearest whole number) and add 1 min. to set the minimum time requirement. If treatment total was 60 min., then 10% of 6 min PT CQ modifier applied: CQ Modifier applied Procedure Charges Therapeutic Exercise 30 minutes: Yes
--- NOTE | 2025-08-01 14:56 | PT.ODAYNRPT ---
PT Outpatient Daily Note OP Daily Note Outpatient Physical Therapy Treatment Date: 08/01/25 Visit Reasons: left knee surgery Subjective: Pt reports L knee is doing ok, feels better when he wears his knee brace. Objective: Please see flow sheet for ther ex list. Assessment: Interventions given alternating sitting and standing to maximize pt participation. Plan: Continue with pOC. Length of Time (minutes) of Treatment: 30 Minutes Procedure Charges Therapeutic Exercise 30 minutes: Yes
--- NOTE | 2025-08-06 16:06 | PT.ODAYNRPT ---
PT Outpatient Daily Note OP Daily Note Outpatient Physical Therapy Treatment Date: 08/06/25 Visit Reasons: left knee surgery Subjective: Pt's knee is better. Pt feels stronger when walking. Objective: Please see flow chart for list of ther ex performed Assessment: progressing with side step and monster walk with improved knee stability noted with exercises Plan: Continue with PT Length of Time (minutes) of Treatment: 30 Minutes Procedure Charges Therapeutic Exercise 30 minutes: Yes
== END 2025-08-06 23:59 | disposition home or self-care (01) ==
LOC: CPTX 14:30
PROVIDERS: PCP Orthopaedic Surgery; Referring Provider Orthopaedic Surgery; Visit Provider Orthopaedic Surgery
DX: M25.562 Pain in left knee (principal); R26.89 Other abnormalities of gait and mobility; R26.2 Difficulty in walking, not elsewhere classified; M23.212 Derangement of anterior horn of medial meniscus due to old tear or injury, left knee
CPT/HCPCS: 97110

== ENCOUNTER 2025-08-08 13:22 | Outpatient (RCR) | payer OTHER, SELFPAY ==
--- NOTE | 2025-08-08 14:12 | PT.ODAYNRPT ---
PT Outpatient Daily Note OP Daily Note Outpatient Physical Therapy Treatment Date: 08/08/25 Visit Reasons: lEFT KNEE SURGERY Subjective: Pt's knee is better. No concerns to report. Objective: Please see flow chart for list of ther ex perofrmed Assessment: tolerate exercises with minimal pain Plan: Continue with PT Length of Time (minutes) of Treatment: 30 Minutes Procedure Charges Therapeutic Exercise 30 minutes: Yes
--- NOTE | 2025-08-13 15:01 | PTNOTE_ITS ---
PT OP Progress/Discharge Note Date of Service: 08/13/25 Progress Note/DC Note Progress Note/Discharge Note: DC Note Patient Information Visit Reasons: Left knee surgery Medical Diagnosis: M23.212 Treatment Dx #1: Left Knee Mobility Deficits Service Continue Service or Discharge: Discharge Discharge Date: 08/13/25 Status Subjective: Pt's knee is much better. Pt has been able to walk, stand, perform stairs, pool exercises, and recreational activities with less limitation. Pt does not have a follow up appt with surgeon. Objective: Left Knee AROM: 0 deg to 130 deg Left Knee MMTs: grossly 4/5 Left Hip MMTs: grossly 4-/5 Active SLR: 90 deg Assessment: Pt demonstrate functional left knee mobility and strength allowing patient to perform ADLs, ambulate, and recreational activities with less limitation. Pt was instructed on HEP last session and educated to continue exercises to maintain overall mobility. Pt performed all exercises safely, thank you for your referrals. Plan: D/C home with HEP and follow up with MD COPELAND Procedure Charges Therapeutic Exercise 30 minutes: Yes
== END 2025-09-06 23:59 | disposition home or self-care (01) ==
LOC: CPTX 13:22
PROVIDERS: PCP Orthopaedic Surgery; Referring Provider Orthopaedic Surgery; Visit Provider Orthopaedic Surgery
DX: M25.562 Pain in left knee (principal); R26.2 Difficulty in walking, not elsewhere classified; R26.89 Other abnormalities of gait and mobility; M23.207 Derangement of unspecified meniscus due to old tear or injury, left knee
CPT/HCPCS: 97110